=== PATIENT | male | born 1960 | race Caucasian/White ===

== ENCOUNTER 2019-05-16 07:01 | Day surgery (SDC) | payer OTHER ==
[2019-05-16] MEDS ORDERED: MIDAZOLAM 1 MG/ML 2 ML INJ (09:42)
[2019-05-16] MEDS ORDERED: FENTAnyl 50 MCG/ML VIAL (09:42)
== END 2019-05-16 11:14 | disposition home or self-care (01) ==
LOC: GIL 07:01
DX: K92.1 Melena (principal); K64.8 Other hemorrhoids
CPT/HCPCS: 45378